=== PATIENT | male | born 1965 | race Caucasian/White ===

== ENCOUNTER 2016-10-26 01:22 | Emergency (ER) | payer MEDICARE, OTHER ==
[2016-10-26 01:44] VITALS: TEMP 98.3; BMI 31.2
[2016-10-26] MEDS ORDERED: ONDANSETRON HCL 4 MG ODT TAB PO ONE (02:45)
[2016-10-26] MEDS ORDERED: OXYCODONE HCL 5 MG TABLET PO ONE (02:45)
--- NOTE | 2016-10-26 02:47 | EDPRACDOC ---
- General Information Chief Complaint: Bite Stated Complaint: INSECT BITE Time Seen by Provider: 10/26/16 02:41 Information Source: Patient Mode Of Arrival: Car Home Medications: Home Medications Ondansetron [Zofran Odt] 4 mg PO Q6H PRN #20 tab.rapdis 10/26/16 Oxycodone HCl/Acetaminophen [Percocet 5-325 mg Tablet] 1 each PO Q4 #20 tablet 10/26/16 Allergies/Adverse Reactions: Allergies Allergy/AdvReac Type Severity Reaction Status Date / Time codeine Allergy Severe Irregular Verified 10/26/16 01:45 Heartbeat IVP dye Allergy Severe Irregular Uncoded 10/26/16 01:45 Heartbeat - History of Present Illness Onset: COOK FISH AND CHIPS HPI: PATIENT WAS BIT BY SPIDER WHILE SITTING ON WOOD PILE TODAY ON RIGHT POSTERIOR CALF. PAIN SINCE EVENT. NOTED ABDOMINAL CRAMPING WITH NAUSEA AND VOMITING. TONIGHT. PATIENT HAS DIABETES Bite Location: Reports: Calf (RIGHT CALF) Bite Cause: Spider Symptoms: Reports: Nausea/Vomiting Bite Wound: Reports: Puncture Animal Immunization Status: N\A Pain Severity: Mild Shortness of Breath: None Pruritus Severity: None Last Tetanus: Yes Associated signs and symptoms: Reports: Nausea, Vomiting ED Past Medical History - History Reviewed Yes Nurses notes reviewed and agree except as marked Travel Outside of [place] in the Last 3 Months?: No - Patient Medical History Cardiac History: Reports: Hypertension Surgical History: Reports: Appendectomy - Social Medical History ETOH: None Substance Abuse: None Lives With: Family Lives In: Home EDM Review of Systems - Review of Systems ROS Negative Except as Marked: Yes All systems reviewed and were negative except as marked Constitutional: No Symptoms Reported. negative: Fever, Chills, Weakness, Fatigue, Loss of Appetite Eyes: No Symptoms Reported. negative: Redness, Blurred Vision, Double Vision, Discharge, Pain, Light Sensitive, Photophobia Ears: No Symptoms Reported. negative: Pain, Hearing Loss, Drainage, Ear Pulling Throat: No Symptoms Reported. negative: Pain, Swelling Nose: No Symptoms Reported. negative: Congestion, Bleeding, Discharge, Injection, Swelling, Deformity, Ecchymosis, Tender, Abrasion, Laceration Mouth: No Symptoms Reported. negative: Pain, Drooling Respiratory: No Symptoms Reported. negative: Cough, Brassy Cough, Barky Cough, Shortness of Breath, Wheezing, Hemoptysis Cardiovascular: No Symptoms Reported. negative: Chest Pain, Palpitations, Syncope, Edema, Orthopnea, PND, Skin Mottling, Cyanosis Gastrointestinal: No Symptoms Reported. negative: Pain, Constipation, Nausea, Vomiting, Diarrhea, Melena, Formula Intolerance Genitourinary: No Symptoms Reported. negative: Dysuria, Hematuria, Frequency, Discharge, Bleeding, Testicular Pain, Neurological: No Symptoms Reported. negative: Headache, Dizziness, Seizure, Numbness, Weakness, Speech Difficulty, Gait Difficulty Musculoskeletal: No Symptoms Reported. negative: Neck, Chestwall, Ribs, Back, Shoulder, Arm, Elbow, Forearm, Wrist, Hand, Pelvis, Hip, Femur, Knee, Leg, Ankle , Foot Integumentary: Wound. negative: Bruising, Itching, Rash Allergic/Immunologic: No Symptoms Reported. negative: Hives, Itching Hematologic: No Symptoms Reported. negative: Lymphadenopathy, Easy Bruising, Easy Bleeding Endocrine: No Symptoms Reported. negative: Weight Gain, Weight Loss Psychiatric: No Symptoms Reported. negative: Anxiety, Depression, Hallucinations, Insomnia, Suicidal - Physical Exam Constitutional: Alert (Awake), No apparent distress Oriented to: Time, Person, Place Last recorded Vital Signs: Last Vital Signs Temp 98.3 F 10/26/16 01:40 Pulse 89 10/26/16 01:40 Resp 20 10/26/16 01:40 BP 158/88 10/26/16 01:40 Pulse Ox 98 10/26/16 01:40 Oxygen Pulse Oxygen Saturation 98 O2 Device Room Air Oxygen Flow Rate Fraction of Inspired Oxygen ( FIO2) - HEENT Head: Normal ( normocephalic) Eye Exam: Normal (PERRL, EOMI, Sclera white) Oropharynx: Normal (Pharynx:Moist without exudate,Gums-no swelling) Tympanic Membrane: Normal ENT EAC: Normal TMJ: Normal Nose: No Symptoms Reported (septum midline) Neck: Normal (FROM, trachea at midline) - Respiratory/Cardiovascular Respiratory: Normal - CTA (BBS clear to auscultation without adventitious sounds ) Cardiovascular: Normal (RRR without murmur, gallop or rub) - GI Auscultation: Normal (NABS) Palpation: Normal (Soft,No rebound or guarding, non distended) Tenderness: Non tender Guthrie's Sign: Negative - Musculoskeletal Back: Normal (Non-Tender) Extremities: Normal (Normal tone, Pulses 2+ No cyanosis or edema, FROM) - Integumentary Skin: Warm, Dry, Other (PUNCTURE WOUND RIGHT CALF) Lymphatics: Normal (no adenopathy) - Neurologic Memory Impaired: Normal Motor Function: Normal (Normal tone, Pulses 2+ No cyanosis or edema, FROM) Cranial Nerve: Normal (CN II-X11 intact sensation, strength 5/5) Cerebellar: Normal Mood Description: Normal Perception: Normal - Results 10/26/16 03:26 10/26/16 03:26 Decision Time to Discharge: 04:10 - Departure Yes I personally saw and evaluated the patient. Disposition: Home Condition: Good Final Diagnosis: Insect bite Qualifiers: Encounter type: initial encounter Qualified Code(s): W57.XXXA - Bitten or stung by nonvenomous insect and other nonvenomous arthropods, initial encounter Nausea & vomiting Qualifiers: Vomiting type: unspecified Vomiting Intractability: non-intractable Qualified Code(s): R11.2 - Nausea with vomiting, unspecified Instructions: Insect Bite or Sting (ED), Acute Nausea and Vomiting (ED) Education/Counseling Given To: Patient Education/Counseling Given Regarding: Diagnosis, Treatment, Prognosis, Follow Up Referrals: None,No Provider [Primary Care Provider] - One Week Ekta Jackson MD [Staff Physician] - One Week Prescriptions: Ondansetron [Zofran Odt] 4 mg PO Q6H PRN #20 tab.rapdis PRN Reason: Nausea/Vomiting Oxycodone HCl/Acetaminophen [Percocet 5-325 mg Tablet] 1 each PO Q4 #20 tablet
[2016-10-26 03:34] LABS: AUTOMATED BASOPHIL 2.6 % (0-2); AUTOMATED LYMPH 29.4 % (17-44); MPV 7.5 fL (7.4-10.4)
[2016-10-26 04:08] VITALS: BP 135/80; PULSE 76
[2016-10-26 04:09] LABS: BLOOD UREA NITROGEN 16 MG/DL (9-20); CALCIUM 9.4 MG/DL (8.4-10.2); CALCULATED OSMOLALITY 274 MOs/Kg (270-290); CHLORIDE 104 mEq/L (98-107); GLUCOSE 195 MG/DL (70-99); SODIUM LEVEL 139 mEq/L (137-146)
== END 2016-10-26 04:25 | disposition home or self-care (01) ==
LOC: ED 01:22
DX: T63.301A Toxic effect of unspecified spider venom, accidental (unintentional), initial encounter (principal); R11.2 Nausea with vomiting, unspecified
CPT/HCPCS: 36415; 80048; 85025; 99283; A9270; J3490